=== PATIENT | male | born 1995 | race Asian ===

== ENCOUNTER 2017-04-07 16:07 | Emergency (ER) | payer OTHER ==
[~2017-04-07] VITALS: Ht 172.7 cm; Wt 81.1 kg
[2017-04-07 16:11] VITALS: TEMP 36.9; Ht 172.7 cm; Wt 81.1 kg
[2017-04-07] MEDS ORDERED: CEPH500C PO (16:40)
--- NOTE | 2017-04-07 16:42 | EMERGENCY ROOM VISIT NOTE ---
ED Visit Note First contact with patient: 16:27 CHIEF COMPLAINT: Rash HISTORY OF PRESENT ILLNESS: This 21-year-old male patient presents to the emergency department, ambulatory, complaining of a rash his bilateral legs and arms which started proximately 1 month ago. The patient states over the past 2- 3 weeks, he has noticed that the rash is extremely itchy. He suspects a skin allergy. The patient is uncertain what he may have an allergy to, as he has not recently moved, and all food he is eating is the same as previously. The patient denies fever, chills, nausea, or loss of appetite. They deny any URI symptoms. The patient has tried random moisturizing lotions and an itchy skin cream from [place]. The patient states the rash is very itchy and rates the discomfort as 0/10. He denies drainage from the rash. No change in food, soap , detergents, or other environmental factors. No new medications. No weakness or numbness. REVIEW OF SYSTEMS: A 6 system review of systems was completed with positives and pertinent negatives listed in the HPI. ALLERGIES: None MEDICATIONS: None PMH: None SOCIAL HISTORY: The patient lives locally with his roommate. He is a [employer] student. He denies drug use. The patient admits to social alcohol use and smoking approximately one pack of cigarettes per day. PHYSICAL EXAM: Vital Signs: Reviewed Nurse's notes, vital signs stable. GENERAL : This is a 21-year-old male, in no acute distress, well-developed, well- nourished. SKIN: There are small, pustular type lesions at the base of hair follicles on the patient's bilateral lower and upper extremities. The rash does fox with pressure. There is no active discharge coming from the lesions. There are excoriations noted. Capillary refill less than 2 seconds. EMERGENCY DEPARTMENT COURSE: Was seen and evaluated as above. His rash does appear consistent with folliculitis. The patient will be started on antibiotics to help clear up the rash, and was encouraged to follow up with [facility] outpatient this week. The patient will be started on Keflex 4 times daily. The patient was in agreement with the assessment and plan. Discharge instructions were reviewed, and the patient was discharged home in good condition. I attest that I have personally reviewed the patient's current medication list. Patient was found to have normal blood pressure on screening and does not require follow-up. DIFFERENTIAL DIAGNOSIS: Folliculitis, viral exanthem, dermatitis, allergic reaction, urticaria, pruritus, malignancy, hepatic disease, and others DIAGNOSIS: Folliculitis Current/Historical Medications Scheduled Cephalexin Monohydrate (Keflex), 500 MG PO QID Vital Signs Date Time Temp Pulse Resp B/P (MAP) Pulse Ox O2 Delivery O2 Flow Rate FiO2 04/07/17 16:53 60 18 130/81 96 Room Air 04/07/17 16:11 36.9 86 16 162/93 96 Room Air Departure Information Impression Primary Impression: Folliculitis Dispostion Home / Self-Care Condition GOOD Prescriptions Cephalexin Monohydrate (Keflex) 500 Mg Cap 500 MG PO QID for 10 Days, #40 CAP Prov: Helen Whiteside PA-C 04/07/17 Referrals No Doctor, Assigned (PCP) [facility] Patient Instructions ED Folliculitis, My [facility] Additional Instructions You were seen in the emergency department today for a rash. I do suspect folliculitis of the cause of the rash. This is an infection of the hair follicles. Cephalexin(Keflex) 500mg: Take one pill four times daily for 10 days for your skin infection. All antibiotics can cause diarrhea. If this occurs and you feel worse or it does not resolve in 1-2 days follow up with your doctor or return to the Emergency Department as this could be signs of serious underlying problems. Any medication can cause an allergic reaction, stop the pills immediately and return to the ER for rash, hives, breathing difficulties, or swelling. Please keep the wounds clean and dry. Use regular antibacterial soap and water to keep them clean. He may take Benadryl or use Benadryl cream OTC to help with itchiness. Please follow up with [facility] in 2-3 days for recheck of the rash. Return to the emergency department for worsening rash, fever, chills, nausea, vomiting, or other associated symptoms.
[2017-04-07 16:53] VITALS: BP 130/81; PULSE 60; O2SAT 96
== END 2017-04-07 16:59 | disposition home or self-care (01) ==
LOC: C.EDB 16:09 → C.EDD 16:59
DX: L73.9 Follicular disorder, unspecified (principal); F17.210 Nicotine dependence, cigarettes, uncomplicated

== ENCOUNTER 2017-04-14 17:46 | Emergency (ER) | payer OTHER ==
[~2017-04-14] VITALS: Ht 172.7 cm; Wt 80.1 kg
[~2017-04-14 17:46] MED LIST: CEPH500C PO
[2017-04-14 17:59] VITALS: TEMP 37; Ht 172.7 cm; Wt 80.1 kg
[2017-04-14] MEDS ORDERED: PRED20TA2 PO (18:30)
[2017-04-14] MEDS ORDERED: CLINDAMYCIN 150MG HOME PACK PO ONE (18:30)
[2017-04-14] MEDS ORDERED: CLIN300C10 PO (18:30)
[2017-04-14] MEDS ORDERED: CLINDAMYCIN HCL 150 MG CAP PO ONE (18:30)
[2017-04-14 18:43] VITALS: BP 122/81; PULSE 68; O2SAT 98
--- NOTE | 2017-04-15 19:39 | EMERGENCY ROOM VISIT NOTE ---
ED Visit Note First contact with patient: 18:14 Chief Complaint: Infection. History of Present Illness: Mr. Multani is a 21-year-old [place] male who ambulates into the ED accompanied by female friend complaining of a skin infection. Patient was seen in this emergency department on April 07 for patient's current skin infection and was diagnosed with folliculitis. He was started on Keflex encouraged to follow-up with [facility]. Patient reports he has not been taking his medication as prescribed and has not followed up. Patient reports over last 2 days he feels like his skin infection is spreading and it is becoming more itchy. He has not taken any medications for his symptoms. He has not identified any aggravating or alleviating factors related to the symptoms. He denies any associated symptoms including fevers, chills, sweats, other skin eruptions, other skin color changes, upper respiratory tract symptoms, cough, wheezing, shortness of breath, decreased appetite, nausea, vomiting, abdominal pain, extremity weakness/numbness/tingling. Review of Systems: As noted above in history of present illness. All body systems were reviewed and found to be negative as noted above. Past Medical History: Kidney stones. Current Medications: Keflex. Allergies to Medications: Patient denies. Social History: Patient is currently University student; he feels safe in his home environment; he admits to tobacco and alcohol use. Physical Examination: Vital Signs: Date Time Temp Pulse Resp B/P (MAP) Pulse Ox O2 Delivery O2 Flow Rate FiO2 04/14/17 18:43 68 18 122/81 98 04/14/17 17:59 37.0 63 18 125/86 97 Room Air GENERAL: 21-year-old male in no acute distress, nontoxic-appearing, afebrile and hemodynamically stable. Patient is anxious. NEUROLOGICAL: Awake, alert and oriented to person, place and time. Answering questions appropriately and following commands. Normal gait. Good hand eye coordination. No focal motor sensory deficits. SKIN: Warm, dry and pink. Extremities: Over both the upper and lower extremities patient has multiple small 1-2 mm erythematous lesions throughout his skin. Some of these have been excoriated and are slightly larger and more erythematous. I do not appreciate any vesicles or pustules. There is no local lymphangitis. The skin is normal temperature and there is no warmth. They're not tender to palpation. He does show me that a few of these areas have now started on his abdomen around his umbilicus and on his chest around his nipples. HEENT: Atraumatic and normocephalic. Sclera white and conjunctiva pink. No drainage from naris. Oral cavity moist and pink. Pharynx is nonerythematous or edematous. No lesions within the oral cavity. Speech normal. THORAX: Lungs sounds are clear to auscultation and equal bilaterally with symmetrical chest wall. ABDOMEN: Flat, soft and nontender. Positive bowel sounds in all quadrants. No guarding, rigidity or organomegaly. EXTREMITIES: Moves all extremities well on command and with purpose. All distal neurovascular statuses are intact and equal bilaterally. No tenderness or erythema over the joints. ED Course: Patient is assessed as noted above. Patient's medication list was reviewed. Patient was educated about today's findings and instructed on his treatment plan ; he verbalizes understanding and agreement with this plan. Clinical Impression: Worsening folliculitis. Disposition: Patient discharged home in stable condition accompanied by his girlfriend; prior to departure he was reassessed and subjectively reported he was feeling the same. Plan: Patient was encouraged to stop his Keflex. Patient was prescribed clindamycin 300 mg 4 times a day for 10 days. Patient was prescribed prednisone 60 mg once a day for 5 days. Patient is encouraged use 25-50 mg of Benadryl every 6 hours for itching. Patient was encouraged to follow-up at [facility] for recheck in 48 hours. Patient was encouraged return ED for worsening rashes, fevers, increasing redness/swelling, red streaking, or any new/concerning symptoms.
== END 2017-04-14 18:45 | disposition home or self-care (01) ==
LOC: C.EDB 17:47 → C.EDD 18:45
DX: L73.9 Follicular disorder, unspecified (principal); F17.200 Nicotine dependence, unspecified, uncomplicated; F10.99 Alcohol use, unspecified with unspecified alcohol-induced disorder